=== PATIENT | male | born 1985 | race Caucasian/White ===

== ENCOUNTER 2019-05-22 12:19 | Emergency (ER) | payer OTHER ==
[~2019-05-22] VITALS: Ht 188 cm; Wt 86.9 kg
[2019-05-22] MEDS ORDERED: triamcinolone acetonide 40mg/ml inj IM ONE (13:05)
[2019-05-22] MEDS ORDERED: diphenhydrAMINE 25mg capsule PO ONE (13:05)
[2019-05-22] MEDS ORDERED: PRED20TA PO ×2 (13:14→13:22)
[2019-05-22] MEDS ORDERED: DIPH25CA83 PO (13:16)
[2019-05-22 13:32] VITALS: BP 97/71
== END 2019-05-22 13:33 | disposition home or self-care (01) ==
LOC: ER 12:19
DX: L23.7 Allergic contact dermatitis due to plants, except food (principal); Z79.899 Other long term (current) drug therapy
CPT/HCPCS: 96372; 99283; J3301; Q0163